=== PATIENT | male | born 1970 | race Caucasian/White ===

== ENCOUNTER 2016-09-01 16:18 | Emergency (ER) | payer OTHER ==
[~2016-09-01] VITALS: Ht 177.8 cm; Wt 81.6 kg
[2016-09-01 16:20] VITALS: BP 130/76
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
--- NOTE | 2016-09-01 17:14 | RADIOLOGY REPORT ---
EXAMINATION: XR ANKLE, RIGHT CLINICAL INFORMATION: 46-year-old man with right ankle injury and pain/swelling. COMPARISON: None TECHNIQUE: AP, lateral, and mortise views of the right ankle. FINDINGS: There is no evidence of acute fracture. Alignment remains anatomic. The ankle mortise is intact. There is moderate soft tissue swelling over the lateral malleolus. IMPRESSION: Moderate soft tissue injury. No evidence of acute fracture or dislocation.
== END 2016-09-01 17:53 ==
LOC: ERH 16:18
DX: S93.401A Sprain of unspecified ligament of right ankle, initial encounter (principal); S90.511A Abrasion, right ankle, initial encounter; V28.0XXA Motorcycle driver injured in noncollision transport accident in nontraffic accident, initial encounter; Y92.9 Unspecified place or not applicable
CPT/HCPCS: 73610-RT